=== PATIENT | female | born 1995 | race Two or more races ===

== ENCOUNTER 2016-04-26 05:50 | Inpatient (IN) | payer SELFPAY ==
[~2016-04-26] VITALS: Ht 152.4 cm; Wt 78.9 kg
[2016-04-26] MEDS ORDERED: IV RINGERS,LACTATED 1000ML 1,000 ML IV SCH (06:00)
[2016-04-26] MEDS ORDERED: CITRIC ACID/SODIUM CITRATE 30 ML SOLUTION. PO ONE (06:15)
[2016-04-26] MEDS ORDERED: MORPHINE PF 5 MG/10 ML VIAL. ONE (06:43)
[2016-04-26] MEDS ORDERED: OXYTOCIN 10 UNIT/ML VIAL. ONE ×2 (06:43→09:10)
[2016-04-26] MEDS ORDERED: EPHEDRINE PF IN SALINE 50 MG/5 ML DISP.SYRIN. IV ONE (06:43)
[2016-04-26] MEDS ORDERED: FENTANYL PF 100 MCG/2 ML VIAL. ONE (06:43)
[2016-04-26] MEDS ORDERED: ONDANSETRON PF 4 MG/2 ML VIAL. ONE (06:44)
[2016-04-26 07:04] LABS: HEMATOCRIT 38.3 % (36.0-47.0); HEMOGLOBIN 12.6 g/dL (12.0-15.5); RED BLOOD COUNT 4.42 x10^6/uL (3.50-5.40); RED CELL DISTRIBUTION WIDTH 13.8 % (11.5-14.5); WHITE BLOOD COUNT 10.5 x10^3/uL (4.0-11.0)
[2016-04-26 08:26] VITALS: BP 132/81
[2016-04-26] MEDS ORDERED: METOCLOPRAMIDE HCL 10 MG/2 ML VIAL. ONE (09:15)
[2016-04-26] MEDS ORDERED: FAMOTIDINE 20 MG/2 ML VIAL ONE (09:15)
[2016-04-26] MEDS ORDERED: DEXAMETHASONE SOD PHOS 20 MG/5 ML VIAL. ONE (09:42)
[2016-04-26] MEDS ORDERED: DIPHENHYDRAMINE ORAL ELIXIR 12.5 MG/5 ML. PO PRN (10:15)
[2016-04-26] MEDS ORDERED: MAGNESIUM HYDROXIDE 2,400 MG/30 ML ORAL.SUSP. PO PRN (10:15)
[2016-04-26] MEDS ORDERED: OXYTOCIN 30 UNIT/500 ML PREMIX 500 ML IV PRN (10:15)
[2016-04-26] MEDS ORDERED: ZOLPIDEM 5 MG TABLET. PO PRN (10:15)
[2016-04-26] MEDS ORDERED: MAG HYDROX/AL HYDROX/SIMETH 30 ML ORAL.SUSP PO PRN (10:15)
[2016-04-26] MEDS ORDERED: MMR per PROTOCOL. MC PRN (10:15)
[2016-04-26] MEDS: IBUPROFEN 800 MG TABLET. PO SCH (10:15)
[2016-04-26] MEDS ORDERED: ONDANSETRON PF 4 MG/2 ML VIAL. IV PRN (10:15)
[2016-04-26] MEDS ORDERED: 0.9 % SODIUM CHLORIDE 10 ML DISP.SYRIN. IV PRN (10:15)
[2016-04-26] MEDS ORDERED: SIMETHICONE 80 MG TAB.CHEW PO PRN (10:15)
[2016-04-26] MEDS: KETOROLAC TROMETHAMINE 30 MG/ML SYRINGE. IV PRN ×2 (11:36→18:16)
[2016-04-26] MEDS: IV RINGERS,LACTATED 1000ML 1,000 ML IV SCH ×2 (11:36→18:16)
[2016-04-26 12:54] VITALS: BP 118/63
[2016-04-26 13:41] VITALS: BP 107/57
[2016-04-26] MEDS: CEFAZOLIN SODIUM 1 GM in IV NORMAL SALINE 50ML 50 ML IV SCH (18:10)
[2016-04-26 23:03] VITALS: BP 116/63
[2016-04-27] MEDS: CEFAZOLIN SODIUM 1 GM in IV NORMAL SALINE 50ML 50 ML IV SCH ×2 (01:39→08:40)
[2016-04-27] MEDS: IV RINGERS,LACTATED 1000ML 1,000 ML IV SCH (01:39)
[2016-04-27 05:06] LABS: BASO % 0 % (0-3); EOS % 0 % (0-3); HEMATOCRIT 26.5 % (36.0-47.0); HEMOGLOBIN 9.1 g/dL (12.0-15.5); LYMPH # 2.7 x10^3/uL (1.0-4.8); LYMPH % 23 % (24-48); MEAN CORPUSCULAR HEMOGLOBIN 29 pg (25-35); MEAN CORPUSCULAR HGB CONC 34 g/dL (31-37); MEAN CORPUSCULAR VOLUME 86 fL (79-100); MONO % 8 % (0-9); NEUT % 68 % (31-73); PLATELET COUNT 130 x10^3/uL (140-400); RED BLOOD COUNT 3.08 x10^6/uL (3.50-5.40); RED CELL DISTRIBUTION WIDTH 14.3 % (11.5-14.5); WHITE BLOOD COUNT 11.5 x10^3/uL (4.0-11.0)
[2016-04-27 05:30] VITALS: BP 113/70
[2016-04-27] MEDS: KETOROLAC TROMETHAMINE 30 MG/ML SYRINGE. IV PRN (06:00)
[2016-04-27] MEDS: IBUPROFEN 800 MG TABLET. PO SCH ×2 (06:00→11:09)
[2016-04-27] MEDS ORDERED: CEFAZOLIN SODIUM 1 GM in IV NORMAL SALINE 50ML 50 ML IV ONE (06:15)
[2016-04-27] MEDS: FERROUS SULFATE 325 MG TABLET PO SCH ×3 (08:00→20:41)
[2016-04-27 08:30] VITALS: BP 134/83
[2016-04-27] MEDS: OXYCODONE/APAP 5/325 TABLET. PO PRN ×2 (11:09→18:21)
[2016-04-27 13:15] VITALS: BP 120/71
--- NOTE | 2016-04-27 13:42 | PDOC ---
Provider Note Provider Note Doing well VSS Incision CDI FU in AM LIN LEGGETT MD Apr 27, 2016 13:42
[2016-04-27 16:50] VITALS: BP 124/68
[2016-04-27 22:55] VITALS: BP 124/85
[2016-04-28] MEDS: OXYCODONE/APAP 5/325 TABLET. PO PRN ×4 (01:39→18:02)
[2016-04-28 04:20] VITALS: BP 123/82
[2016-04-28] MEDS: IBUPROFEN 800 MG TABLET. PO SCH ×2 (06:24→18:01)
[2016-04-28] MEDS: DOCUSATE SODIUM 100 MG CAPSULE PO PRN ×2 (08:45→18:01)
[2016-04-28] MEDS: FERROUS SULFATE 325 MG TABLET PO SCH ×2 (08:46→18:01)
[2016-04-28 21:55] VITALS: BP 139/85
[2016-04-29 05:00] VITALS: BP 130/84
[2016-04-29] MEDS: OXYCODONE/APAP 5/325 TABLET. PO PRN (05:07)
[2016-04-29] MEDS: IBUPROFEN 800 MG TABLET. PO SCH (05:08)
[2016-04-29] MEDS: DOCUSATE SODIUM 100 MG CAPSULE PO PRN (08:02)
[2016-04-29] MEDS: FERROUS SULFATE 325 MG TABLET PO SCH (08:02)
[2016-04-29] MEDS ORDERED: NAPR500T3 PO (08:54)
[2016-04-29] MEDS ORDERED: OXYC-323 PO (08:54)
[2016-04-29 13:40] VITALS: BP 121/94
--- NOTE | 2016-05-08 10:12 | PDOC ---
BRIEF OPERATIVE NOTE Date: Apr 26, 2016 Pre-Op Diagnosis TIUP Desires RLTC/S Post-Op Diagnosis Same Procedure Performed RLTC/S Surgeon Guru Anesthesia Type: Regional Blood Loss 600cc Specimens Obtained None Findings Female, 3310gm Complications None LIN LEGGETT MD May 08, 2016 10:12
--- NOTE | 2016-05-08 10:14 | PDOC ---
Provider Note Provider Note Late entry 04/28/16 Doing well VSS Incision CDI FU in AM LIN LEGGETT MD May 08, 2016 10:14
--- NOTE | 2016-05-08 10:15 | PDOC3 ---
OB DISCHARGE SUMMARY DATE OF ADMISSION: 04/26/16 DATE OF DISCHARGE: 04/29/16 REASON FOR ADMISSION: section PROCEDURES: Ultrasound INTRAPARTUM PROCEDURES: : Low Cerv Trans PROCEDURES: None OPERATIONS: None PROBLEM LIST AT DISCHARGE Problems Medical Problems: (1) Status: Acute DISCHARGE DIAGNOSIS: Term Delivered DISCHARGE INFORMATION: Activity, Diet HOSPITAL COURSE Unremarkable CONDITION AT DISCHARGE Stable LIN LEGGETT MD May 08, 2016 10:15
--- NOTE | 2016-05-08 10:20 | PDOC1 ---
OB - History Hx of Present Care: Good Care Ultrasounds: Normal mid trimester US Obstetrical Complications: None Medical Complications: None Past Family/Social History * Past Medical, Surgical, Family and Obstetric Histories reviewed from chart. Blood Type: B+ Rubella: Immune RPR/VDRL: Negative GBS Status: Unknown HBsAG: Negative OB - Chief Complaint & HPI Date of Admission: Date of Admission: Apr 26, 2016 at 05:50 Chief Complaint/History : 3 Para: 2 EDC: May 03, 2016 Reason for admission: section Indication for : desires repeat Admission Nurse Assessment Rev: Yes Problems: OB - Admission Exam Physical Exam HEENT: Normal, Nasal Mucosa Normal, Oropharynx Normal, Moist Membranes, Fontanelles Normal Heart: Regular Rate Lungs: Clear, Equal Abdomen: Gravid Extremities: Normal Pulses, No tenderness or swelling Reflexes: Normal Cervical Dilatation: None Effacement: 0% Station: Ballotable Membranes: Intact Heart Rate: Normal Accelerations: Accelerations Present Decelerations: No decelerations Contractions on Admission: None Assessment/Plan Assessment/Plan TIUP Desire FALGUNI/LIN WRIGHT MD May 08, 2016 10:20
--- NOTE | 2016-05-08 14:39 | OP ---
DATE OF SURGERY: 04/26/2016 PREOPERATIVE DIAGNOSES: Term intrauterine , desires repeat . POSTOPERATIVE DIAGNOSES: Term intrauterine , desires repeat . PROCEDURE PERFORMED: Repeat low transverse . SURGEON: Mac Garvey M.D. TUBE MOUNTER: None. ANESTHESIA: Regional. ESTIMATED BLOOD LOSS: 700 mL. FLUIDS: Crystalloid. SPECIMENS: None. FINDINGS: Normal female infant, Apgars 8, 9 and 9, weight 3310 grams, normal uterus, tubes and ovaries. COMPLICATIONS: None. CONDITION: Stable. DESCRIPTION OF PROCEDURE: After risks, benefits, indications, alternatives discussed in detail with the patient, the patient brought to the OR theater, placed in a supine position with left lateral uterine displacement. After adequate regional anesthesia, the patient was prepped and draped in usual sterile manner. Previous Pfannenstiel incision was taken out in toto with scalpel and Bovie cautery, subcutaneous tissues taken down with Bovie cautery. Rectus fascia was nicked in midline and extended laterally in each direction with Bovie cautery. Upper edge rectus fascia was grasped x 2 with Rosemarie clamps, elevated above the rectus muscle, both bluntly and sharply with Bovie cautery. Same procedure was carried out on lower edge of rectus fascia. Rectus muscle split in midline and extended superiorly and inferiorly with Bovie cautery. Prior to peritoneum was entered bluntly with gentle stretch on the rectus muscle, room was made for delivery. Leon retractor was placed within the pelvic cavity. Low transverse hysterotomy incision was made sharply with a scalpel and extended laterally in each direction with gloved hand, membranes ruptured Allis clamp. Clear fluid was noted. The gloved hand was placed within the lower uterine segment and used to elevate the head with fundal pressure from the horticultural nursery assistant, infant was delivered on anterior abdominal wall. Infant cried spontaneously and moved all extremities. Infant was bulb suctioned. Cord was doubly clamped and infant was handed off to nursing care in attendance. Cord blood sample taken, placenta delivered spontaneously intact, 3-vessel cord. Uterus was wiped free of any adherent membranes. Low transverse hysterotomy incision reapproximated with 0 Monocryl in a running locking manner, imbricated with 0 Monocryl in a vertical mattress stitch fashion. Bladder flap was reapproximated with 3-0 Vicryl running manner. Pelvic gutters were inspected and noted to be free of any blood or debris. The Leon retractor was removed. The lower uterine segment was once again inspected and noted to be hemostatic. Parietal peritoneum was reapproximated with 3-0 Vicryl in a running manner, this reapproximated rectus muscle in midline. Fascia was reapproximated with 0 PDS in a running manner. Subcutaneous tissue was irrigated copiously with warm normal saline. Liza's fascia was reapproximated with 2-0 plain in a running manner. Skin was reapproximated with Insorb rashid. Sponge, needle and instrument counts were correct x 2 per nursing staff. The patient went to postop anesthesia recovery in stable condition. MAC GARVEY MD DR: REINIER/rosalba JOB#: [id number] / [id number]
== END 2016-04-29 15:34 | disposition home or self-care (01) | DRG 766 ==
LOC: 3 SO LND 05:50 → 3 NORTH 13:11
PROVIDERS: ADMIT Specialist; ATTEND Specialist
PROC: 10D00Z1 Extraction of Products of Conception, Low, Open Approach (ICD-10-PCS; principal; 2016-04-26)
DX: O80 Encounter for full-term uncomplicated delivery (principal)
CPT/HCPCS: 36415; 85027; 86593; 86850; 86900; 86901; J0690; J1100; J1885; J2270; J2405; J2590; J2765; J3010; J7120; S0028